=== PATIENT | male | born 1985 | race African-American/Black ===

== ENCOUNTER 2019-10-28 09:33 | Emergency (ER) | payer MEDICAID, SELFPAY ==
--- NOTE | 2019-10-28 09:36 | W.ED.GENAD ---
Discharge Plan Disposition Patient Disposition: HOME Condition: Stable Discharge Details Chief Complaint: RespSymp Clinical Impression: URI with cough and congestion, Patient requested test Primary Care Provider: None,None ED Provider: Khadijah Nieves Home Meds and New Rx's Prescriptions: Continued lorazepam 2 MG tablet 2 mg PO 1-2x/d Qty: 30 RF: 0 dextroamphetamine-amphetamine [Adderall XR] 20 mg capsule,extended release 24hr 20 mg PO DAILY MDD 1 Qty: 30 RF: 0 Discharge Instructions Instructions: Upper Respiratory Infection (ED) Additional Instructions: Drink plenty of fluids and get plenty of rest. Alternate tylenol and motrin as needed and directed for pain. Take [id number] cough and cold medication Mucinex, Robitussin for your symptoms. You will receive a call from the hospital regarding your coronavirus testing result. Follow-up with your primary care doctor in 1 week. Return to the emergency department with any worsening or new concerning symptoms. Discharge Data Discharge Physician: Khadijah Nieves Medical Decision Making 33-year-old male with a history of ADHD presents for cough with white sputum, chest congestion, bad taste in mouth with concern for possible coronavirus. Denies fever. Admits to travel today after 3 weeks ago. He is walking around the room and appears mildly anxious. BP mildly hypertensive, otherwise vitals within normal limits. Normal ENT exam. Lungs clear. Patient tested for coronavirus. Do not see indication for lab work or imaging. Patient appears nontoxic. He was advised to self isolate, and quarantine until the testing result available. Advised to follow up with the primary care doctor for re-evaluation. Usual and customary return precautions given prior to discharge. Medical Records Medical records reviewed: Yes I reviewed the patient's medical records. HPI General Mode of arrival: ambulatory. Date/Time Provider Initiated Documentation: 10/28/19 09:35. Limitations to Documentation: no limitations. Information obtained by: patient. HPI Narrative: Patient is a 33-year-old male with history of ADHD and asthma who presents with cough productive of white sputum, chest congestion, bad taste in mouth for the past few days. He denies any fever, chest pain, shortness of breath, sore throat, headache or neck pain. He has been taking Tylenol and [id number] cough and cold medications. Patient states he traveled to [place] recently and is mainly concerned about mariaa coronavirus. 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 Related Data Home Medications Medication Instructions Recorded Confirmed lorazepam 2 mg PO 1-2x/d #30 tab 11/22/17 10/28/19 dextroamphetamine-amphetamine ER 20 mg PO DAILY #30 tab-cap MDD 1 08/20/18 10/28/19 20 mg 24hr capsule,extend release Previous Rx's Medication Instructions Recorded lorazepam 2 mg PO 1-2x/d #30 tab 11/22/17 dextroamphetamine-amphetamine ER 20 mg PO DAILY #30 tab-cap MDD 1 08/20/18 20 mg 24hr capsule,extend release Allergies Allergy/AdvReac Type Severity Reaction Status Date / Time shellfish derived Allergy Severe Anaphylaxsi Unverified 10/28/19 09:45 s Review of Systems All systems reviewed & are unremarkable except as noted in HPI and below Constitutional Constitutional: Reports as per HPI, Denies chills and Denies fever(s) Eyes Eyes: Denies blurry vision ENT Ears, Nose, Mouth, and Throat: Denies dizziness, Denies sore throat and Denies throat swelling Cardiovascular Cardiovascular: Denies chest pain and Denies dyspnea Respiratory Respiratory: Reports cough and Denies dyspnea Gastrointestinal Gastrointestinal: Denies abdominal pain, Denies diarrhea and Denies vomiting Genitourinary Genitourinary: Denies hematuria and Denies dysuria Musculoskeletal Musculoskeletal: Denies back pain and Denies numbness Integumentary/Breasts Skin/Breast: Denies lesions and Denies rash Neurologic Neurologic: Denies dizziness, Denies localized weakness and Denies numbness Allergic/Immunologic Allergic/Immunologic: Denies throat swelling [facility] Medical History (Updated 10/28/19 @ 14:01 by Khadijah Nieves DO) ADHD (attention deficit hyperactivity disorder) Asthma Prostatitis Surgical History (Updated 01/31/18 @ 14:35 [facility] [place] Arthroscopy, Shoulder EXE MASS UNDER WANG (01/07/15) DR. QUIN MCKEON Rotator Cuff Repair Vasectomy Social History Smoking/Tobacco Use Status: Current every day Alcohol Intake: current Alcohol Intake frequency: 0-2 drinks per day Alcohol type: beer and wine Drug use: Daily Substance use type: marijuana Do you feel safe at home: Yes Do you feel safe in your relationship?: Yes Exam Const General: cooperative, healthy appearing and anxious Orientation: alert and awake [facility] Head: normal to inspection Ears: hearing grossly normal bilaterally, external ears normal and TM's normal bilaterally General nose exam: external nose normal Face and sinus: normal facial exam Mouth: oral mucosae normal Teeth and gingiva: dentition normal Throat: posterior oropharynx normal Eyes General: appearance normal, both eyes and all related structures Eyelids: eyelids normal Pupils: PERRL EOM: EOM intact bilaterally Neck Neck: normal visual inspection Lymphatic: no lymphadenopathy noted Chest Chest: normal inspection of the chest Resp Effort & Inspection: normal respiratory effort and able to speak in complete sentences Auscultation: clear to auscultation bilaterally Cardio Rate: regular rate Rhythm: regular rhythm GI Inspection: normal to inspection Palpation: soft, not firm, no guarding, no hepatosplenomegaly, no masses and nontender Auscultation: normal bowel sounds Skin General skin exam: no rashes or lesions noted Neuro General: patient alert and patient awake Cognition: normal cognition Speech: speech normal Gait: normal gait Motor: muscle tone normal throughout Sensory Exam: no sensory deficits noted Extrem General: normal to inspection, full ROM and capillary refill normal Psych Appearance: grossly normal Mental Status: mental status grossly normal Speech and Movement: speech and movement normal Mood: anxious mood Affect: normal affect Thought Process: normal
[2019-10-28 09:39] VITALS: BP 151/89; PULSE 74; TEMP 36.5; O2SAT 98
[2019-11-01 17:49] LABS: SARS-CoV-2 RNA Undetected (Undetected); SARS-CoV-2 Specimen Source Nasopharynx
== END 2019-10-28 10:41 | disposition home or self-care (01) ==
PROVIDERS: Emergency Provider Physician Assistant
DX: J06.9 Acute upper respiratory infection, unspecified (principal); R43.9 Unspecified disturbances of smell and taste; Z11.59 Encounter for screening for other viral diseases
CPT/HCPCS: 99283; U0003; 99282

== ENCOUNTER 2020-06-17 11:28 | Emergency (ER) | payer MEDICAID, SELFPAY ==
[2020-06-17 11:38] VITALS: BP 138/89; PULSE 98; RESP 18; TEMP 36.9; O2SAT 98
[2020-06-17 11:51] LABS: Bilirubin Negative (Negative); Blood Negative (Negative); Clarity Clear (Clear); Glucose Negative (Negative); Ketones Negative (Negative); Leukocyte Esterase Negative (Negative); Nitrite Negative (Negative); Specific Gravity >= 1.030 (1.005-1.025); Urobilinogen 0.2 EU/dL (Up TO 0.2); pH 5.5 (5-8)
--- NOTE | 2020-06-17 12:00 | DI.US_ITS ---
EXAM: US SCROTUM CLINICAL HISTORY: testicle pain righ>L. TECHNIQUE: Scrotal ultrasound performed using grayscale, color-flow and spectral Doppler analysis. COMPARISON: No exams were available for comparison FINDINGS: Right testicle: 2.8 x 2.5 x 2.8 cm Echogenicity: Normal. Contour: Smooth. Mass: None seen. Microlithiasis: None. Hydrocele: None. Variocele: None. Hernia: No peristalsing bowel loop identified. Epididymis: Normal. Left testicle: 3.2 x 2.1 x 2.9 cm Echogenicity: Normal. Contour: Smooth. Mass: None seen. Microlithiasis: None. Hydrocele: None. Variocele: None. Hernia: No peristalsing bowel loop identified. Epididymis: Normal. DOPPLER: Color: Symmetric and uniform, no hyperemia. Duplex: Bilateral testicular arterial waveforms visualized. IMPRESSION: 1. Normal appearing bilateral testicles. 2. No sonographic evidence of an inguinal hernia. DATA REPOSITORY:
--- NOTE | 2020-06-17 12:18 | ED.GENADUL_ITS ---
Discharge Plan Disposition Patient Disposition: HOME Condition: Good Discharge Details Clinical Impression: Pain in right testicle Primary Care Provider: None,None ED Provider: Shari Gonzalez Home Meds and New Rx's Prescriptions: New doxycycline hyclate 100 mg capsule 100 mg PO BID Qty: 20 RF: 0 No Action lorazepam 2 MG tablet 2 mg PO 1-2x/d Qty: 30 RF: 0 dextroamphetamine-amphetamine [Adderall XR] 20 mg capsule,extended release 24hr 20 mg PO DAILY MDD 1 Qty: 30 RF: 0 Discharge Instructions Additional Instructions: take antibiotics as prescribed yogurt daily on antibiotics motrin/tylenol for pain control follow-up with urologist with persistent pain >1 weekreturn earlier with fever, chills, or with any new or worsening complaints Referrals: Chucky Way MD [ [facility] STAFF PHYSICIAN] - Medical Decision Making Ultrasound scrotum does not show acute abnormality Afebrile and nontoxic GC chlamydia urine pending We will treat empirically for epididymitis, placed on doxycycline for 10 days Ceftriaxone 500 mg IM No obvious hernia on ultrasound Urinalysis does not show evidence of urinary tract infection, STD panel pending Patient will use a sexual practices and follow-up for results of his STD testing return, COVID-19 testing today reportedly. Discharge home in stable condition with stable vitals, urology referral supplied Return precautions discussed understanding Differential Diagnosis Differential Diagnosis: Urinary tract infection, sexually transmitted disease, epididymitis, hernia Medical Records Medical records reviewed: Yes I reviewed the patient's medical records. Lab Data Lab results reviewed: Yes I reviewed the patient's lab results. HPI 35-year-old male presents negative pain at right inguinal region and examination for the past 3 weeks. Initially pain was intermittent and now constant. He denies fever or chills. He denies ejaculatory pain. He denies any chest pain or shortness of breath. He denies pain with bowel movements. He denies any purulent drainage from his urethra. He denies blood in his ejaculate. He sexually active and monogamous partner for years. Denies known risk of sexually transmitted disease. Hypothyroidism diagnosed with epididymitis but cleared with antibiotics. Follow-up with urology and hospital for this particular incident. Denies dysuria denies any flank pain. Otherwise reportedly healthy. General Date/Time Provider Initiated Documentation: 06/17/20 11:41 . Related Data Home Medications Medication Instructions Recorded Confirmed lorazepam 2 mg PO 1-2x/d #30 tab 11/22/17 06/17/20 dextroamphetamine-amphetamine ER 20 mg PO DAILY #30 tab-cap MDD 1 08/20/18 06/17/20 20 mg 24hr capsule,extend release doxycycline hyclate 100 mg PO BID #20 cap 06/17/20 Previous Rx's Medication Instructions Recorded lorazepam 2 mg PO 1-2x/d #30 tab 11/22/17 dextroamphetamine-amphetamine ER 20 mg PO DAILY #30 tab-cap MDD 1 08/20/18 20 mg 24hr capsule,extend release doxycycline hyclate 100 mg PO BID #20 cap 06/17/20 Allergies Allergy/AdvReac Type Severity Reaction Status Date / Time shellfish derived Allergy Severe Anaphylaxsi Unverified 06/17/20 11:45 s General Stated Complaint: Urinary KAILA: 3 Review of Systems Narrative: Review of systems negative x7 aside from where indicated in HPI, specifically no abdominal pain, chest pain, fever PFSH Medical History (Updated 06/17/20 @ 13:07 by SHIRLEY Myrick) ADHD (attention deficit hyperactivity disorder) Asthma Prostatitis Surgical History (Updated 01/31/18 @ 14:35 by [employer] [place]) Arthroscopy, Shoulder EXE MASS UNDER WANG (01/07/15) DR. QUIN MCKEON Rotator Cuff Repair Vasectomy Social History Smoking/Tobacco Use Status: Current every day Smoking risk assessment performed?: Yes Alcohol Intake: current Alcohol Intake frequency: 0-2 drinks per day Alcohol type: beer and wine Drug use: Daily Substance use type: marijuana Do you feel safe at home: Yes Do you feel safe in your relationship?: Yes Exam Const General: cooperative and healthy appearing Eyes Conjunctivae: conjunctivae normal Resp Effort & Inspection: normal respiratory effort Cardio Rate: regular rate GI Other: No palpable hernia, no CVA tenderness, no abdominal bruit or pulsatile mass, abdomen nontender Scrotum: no ecchymosis, not edematous and not erythematous Testes: epididymal tenderness Other: No palpable hernia Skin General skin exam: no rashes or lesions noted Neuro General: patient alert Course Vital Signs Vital signs: Vital Signs Temperature 36.9 C 06/17/20 11:38 Pulse 98 H 06/17/20 11:38 Respiratory Rate 18 06/17/20 11:38 Blood Pressure 138/89 06/17/20 11:38 Pulse Oximetry 98 06/17/20 11:38 Temperature 36.9 C 06/17/20 11:38 Temperature Source Oral 06/17/20 11:38 Pulse 98 H 06/17/20 11:38 Respiratory Rate 18 06/17/20 11:38 Respiratory Effort 06/17/20 11:42 Blood Pressure 138/89 06/17/20 11:38 Pulse Oximetry 98 06/17/20 11:38 Oxygen Delivery Method Room Air 06/17/20 11:38 Oxygen Flow Rate 0 06/17/20 11:38 Pain Level 9 06/17/20 11:38 Lab/Test Results Lab/Test Results: Laboratory Tests Range/Units 06/17/20 11:40 Urine Color (Yellow) Yellow Urine Clarity (Clear) Clear Urine pH (5-8) 5.5 Ur Specific [place] (1.005-1.025) >= 1.030 H Urine Protein (Negative) mg/dL Negative Urine Ketones (Negative) mg/dL Negative Urine Blood (Negative) Negative Urine Nitrite (Negative) Negative Urine Bilirubin (Negative) Negative Urine Urobilinogen (Up TO 0.2) EU/dL 0.2 Ur Leukocyte Esterase (Negative) Negative Urine Glucose (Negative) mg/dL Negative
[2020-06-17] MEDS: Ketorolac 15 MG/ML VIAL IM (13:32)
[2020-06-17] MEDS: Lidocaine 1% Pres-Free 5 ML VIAL (13:32)
[2020-06-17] MEDS: cefTRIAXone 500 MG VIAL IM (13:32)
[2020-06-18 14:40] LABS: Chlamydia Result Negative (Negative); GC Result Negative (Negative)
== END 2020-06-17 13:32 | disposition home or self-care (01) ==
PROVIDERS: Registered Nurse Emergency; Emergency Provider Physician Assistant
DX: N50.811 Right testicular pain (principal)
CPT/HCPCS: 87491; 87591; 96372; 99284; 76870; 81003; 99283; J0696; J1885

== ENCOUNTER 2020-08-25 13:50 | Outpatient (REF) | payer MEDICAID, SELFPAY ==
[2020-08-25 18:57] LABS: HCT 44.3 % (40.0-50.0); HGB 13.9 g/dL (13.5-17.5); MCH 23.1 pg (27.0-33.0); MCHC 31.4 % (32.0-36.0); MPV 12.1 fL (8.0-11.0); Platelet Count 247 10^3/uL (130-400); RBC 6.03 10^6/uL (4.36-5.78); RDW 14.6 % (11.8-14.1); RDW-SD 37.7 fL; WBC 9.28 10^3/uL (4.4-10.8)
[2020-08-25 19:11] LABS: ALT 43 U/L (16-63); AST 19 U/L (15-37); Albumin 4.4 g/dL (3.4-5.0); Alkaline Phosphatase 75 U/L (46-116); Anion Gap 12.9 mmol/L (3-11); BUN 12 mg/dL (7-18); Bilirubin, Total 0.4 mg/dL (0.2-1.0); CO2 24.1 mmol/L (21.0-32.0); CREATININE 0.9 mg/dL (0.70-1.30); Calcium 9.4 mg/dL (8.5-10.1); Calculated LDL 139 mg/dL (<100); Chloride 105 mmol/L (98-107); Cholesterol 209 mg/dL (<200); Glucose 97 mg/dL (74-106); HDL Cholesterol 41 mg/dL (40-60); Potassium 4.5 mmol/L (3.5-5.1); Sodium 142 mmol/L (136-145); Total Protein 7.6 g/dL (6.4-8.2); Triglyceride 145 mg/dL (<150)
[2020-08-25 19:23] LABS: Lipase 102 U/L (73-393)
[2020-08-25 20:22] LABS: MCV 73.5 fL (80-95)
== END 2020-08-25 13:51 | disposition home or self-care (01) ==
LOC: NCHCN 13:50
PROVIDERS: Visit Provider Nurse Practitioner Family
DX: R10.84 Generalized abdominal pain (principal); R74.8 Abnormal levels of other serum enzymes; R25.1 Tremor, unspecified; F10.10 Alcohol abuse, uncomplicated
CPT/HCPCS: 80053; 80061; 83690; 85027

== ENCOUNTER 2020-09-04 13:07 | Outpatient (REF) | payer MEDICAID, SELFPAY ==
[2020-09-04 18:49] LABS: Iron 104 ug/dL (65-175); Total Iron Binding Capacity 317 ug/dL (250-450); Transferrin Sat 33 % (20-55)
[2020-09-04 19:02] LABS: Ferritin 214 ng/mL (26-388)
== END 2020-09-04 13:08 | disposition home or self-care (01) ==
LOC: NCHCN 13:07
PROVIDERS: Visit Provider Nurse Practitioner Family
DX: R71.8 Other abnormality of red blood cells (principal)
CPT/HCPCS: 82728; 83540; 83550

== ENCOUNTER 2022-05-10 16:47 | Emergency (ER) | payer MEDICAID, SELFPAY ==
[2022-05-10 16:55] VITALS: BP 156/87; PULSE 95; RESP 20; O2SAT 98
--- NOTE | 2022-05-10 21:37 | NUR.NOTE ---
Nursing Note: Patient eloped. Was seen by SHIRLEY Mccarthy, but elected to leave prior to workup being completed. Well appearing, able to walk out without assitance.
[2022-05-10 21:38] VITALS: RESP 20
== END 2022-05-10 18:25 ==
LOC: ER 17:12
PROVIDERS: Emergency Provider Physician Assistant
DX: Z53.21 Procedure and treatment not carried out due to patient leaving prior to being seen by health care provider (principal)
CPT/HCPCS: 80053; 83735; 84443; 85025

== ENCOUNTER 2022-05-11 11:27 | Emergency (ER) | payer MEDICAID, SELFPAY ==
[2022-05-11 11:35] VITALS: BP 132/64; PULSE 96; RESP 18; TEMP 37.4; O2SAT 99
--- NOTE | 2022-05-11 12:04 | ED.GENADUL_ITS ---
Discharge Plan Disposition Patient Disposition: Home Condition: Stable Discharge Details Clinical Impression: Paresthesia ED Provider: Farhat Verma Home Meds and New Rx's Prescriptions: No Action lorazepam 2 MG tablet 2 mg PO PRN PRN Discharge Instructions Instructions: Paresthesia (ED) Additional Instructions: Please get plenty of rest and stay well-hydrated. Continue to monitor symptoms and if you have any significant worsening return to the emergency department otherwise if your symptoms stay stable please discuss this further with your primary care provider to discuss further testing and advanced imaging if needed. Referrals: [facility] [Provider Group] - 05/18/22 (Please keep your appoint with your primary care provider and discuss your visit today.) Discharge Data Discharge Date/Time-TO BE ENTERED AT DEPARTURE: 05/11/22 15:20 Medical Decision Making Patient presenting to the emergency department for chief complaint of numbness that is transient along with occasional general weakness. He states this all started a week ago when he started amoxicillin for dental infection. Patient denies any injury or trauma, fever chills, chest pain shortness of breath or other neurological symptoms. Physical exam shows normal cranial nerve exam, normal cardiac and respiratory exam, no rash or lesions, perceived decrease sensation mainly to the left lower extremity and right hand but no loss of sensation. No nerve root pattern to the sensation perception but sensation is intact motor normal, DTRs normal. I have low suspicion that this is a abnormal adverse reaction to the antibiotic. We will check labs for potential electrolyte abnormality, will also do send out tick and Lyme panel along with syphilis. Do not feel that patient requires any advanced imaging and while MS is considered given slight transient nature I do not feel that emergent MRI is needed. I do not feel that patient symptoms are consistent with CVA or emergent acute neurological condition. Patient does state he has follow-up with primary care provider already scheduled for next week. Labs show some mild elevation of of WBCs without shift. RBCs are also slightly elevated, CBC otherwise nondiagnostic, CMP is unremarkable, no obvious electrolyte abnormalities, magnesium within normal limits, B12 within normal limits, calcium sodium and potassium also all again normal. Slightly elevated total protein. Still pending tickborne panel and syphilis. I do feel the patient is safe for discharge to primary care provider for reassessment or return for any significant worsening or change in condition. After discussion of diagnosis and plan of care patient has no further needs, questions, or concerns and states clear understanding to return to the emergency department for any worsening symptoms. This documentation was generated using netTALK dictation system, please disregard any oddities of phrase or misspellings. HPI General Mode of arrival: ambulatory . Date/Time Provider Initiated Documentation: 05/11/22 11:30 . Limitations to Documentation: no limitations . Information obtained by: patient and RN notes reviewed . History of Present Illness 36 year old M presents to the emergency department with the chief complaint of Multiple areas of numbness, described as moderate, Quality is described as other (Denies pain or discomfort), and is localized to the upper extremity and lower extremity. Patient reports no radiation. Patient started experiencing this week(s) (1) and it has been constant. No relieving factors improve symptom(s), Medication worsens symptoms . Patient notes no other symptoms.. Patient did receive the following treatments prior to arrival, none Related Data Home Medications Medication Instructions Recorded Confirmed lorazepam 2 mg tablet 2 mg PO PRN PRN 05/10/22 05/10/22 Allergies Allergy/AdvReac Type Severity Reaction Status Date / Time shellfish derived Allergy Severe Anaphylaxsi Unverified 05/10/22 17:02 s General Stated Complaint: GenMedical KAILA: 3 Review of Systems Constitutional Constitutional: Denies chills, Denies fever(s) and Denies headache(s) Eyes Eyes: Denies change in vision ENT Ears, Nose, Mouth, and Throat: Reports dental pain and Denies headache(s) Cardiovascular Cardiovascular: Denies chest pain and Denies dyspnea Respiratory Respiratory: Denies cough and Denies dyspnea Gastrointestinal Gastrointestinal: Denies abdominal pain, Denies diarrhea, Denies nausea and Denies vomiting Genitourinary Genitourinary: Denies testicular pain Musculoskeletal Musculoskeletal: Reports as per HPI, Reports abnormal gait, Reports numbness and Denies tingling Integumentary/Breasts Skin/Breast: Denies rash and Denies wounds Neurologic Neurologic: Reports abnormal gait, Denies headache(s), Reports numbness and Denies tingling PFSH All Active Problems (Updated 05/11/22 @ 15:00 by Farhat Verma NP) Pain in right testicle (Acute) Paresthesia (Acute) Medical History ADHD (attention deficit hyperactivity disorder) Asthma Prostatitis Surgical History Arthroscopy, Shoulder EXE MASS UNDER WANG (01/07/15) DR. QUIN MCKEON Rotator Cuff Repair Vasectomy Social History Smoking/Tobacco Use Status: Current every day Smoking risk assessment performed?: Yes Alcohol Intake: current Alcohol Intake frequency: 0-2 drinks per day Alcohol type: beer and wine Drug use: Daily Substance use type: marijuana Do you feel safe at home: Yes Do you feel safe in your relationship?: Yes Exam Const General: cooperative, healthy appearing, no acute distress and well groomed Orientation: alert, awake and oriented x3 HENMT Head: normal to inspection Ears: hearing grossly normal bilaterally and TM's normal bilaterally Mouth: oral mucosae normal and moist mucous membranes Throat: posterior oropharynx normal Eyes Visual Monroy: normal visual monroy by confrontation Alignment and Position: alignment normal Periorbital: periorbital findings normal Eyelids: eyelids normal Sclera: sclerae normal Cornea: corneas normal Pupils: PERRL EOM: EOM intact bilaterally Neck Neck: normal visual inspection, full ROM, no lymphadenopathy and no meningeal signs Resp Effort & Inspection: normal respiratory effort and able to speak in complete sentences Auscultation: clear to auscultation bilaterally Cardio Rate: regular rate Rhythm: regular rhythm Heart Sounds: S1 normal and S2 normal Neuro General: patient alert, patient awake, patient oriented x3, gait normal, tone normal, moves all extremities, CN's II-XI intact bilaterally and not confused Cognition: normal cognition Speech: speech normal Gait: normal gait Motor: muscle tone normal throughout, strength 5/5 throughout, no pronator drift, no movement abnormalities noted and no fasciculations Sensory Exam: no sensory deficits noted and normal double simultaneous stimulation DTR's: Rt Patellar: 2+, Lt Patellar: 2+, Rt Ankle: 2+ and Lt Ankle: 2+ Coordination: Does not sway with eyes open Course Vital Signs Vital signs: Vital Signs Temperature 37.4 C 05/11/22 11:35 Pulse 96 H 05/11/22 11:35 Respiratory Rate 18 05/11/22 11:35 Blood Pressure 132/64 05/11/22 11:35 Pulse Oximetry 99 05/11/22 11:35 Temperature 37.4 C 05/11/22 11:35 Temperature Source Tympanic 05/11/22 11:35 Pulse 96 H 05/11/22 11:35 Respiratory Rate 18 05/11/22 11:35 Respiratory Effort 05/11/22 11:51 Respiratory Depth Normal 05/11/22 11:51 Respiratory Pattern Normal 05/11/22 11:51 Blood Pressure 132/64 05/11/22 11:35 Blood Pressure Position Supine 05/11/22 11:35 Pulse Oximetry 99 05/11/22 11:35 Oxygen Delivery Method Room Air 05/11/22 11:35 Oxygen Flow Rate 0 05/11/22 11:35 Pain Level 0 05/11/22 11:35 PAWSS Have you Been Recently Intoxicated or Drunk Within the Last 30 days?: Yes Have you Ever Experienced Previous Episodes of Alcohol Withdrawal?: No Have you ever Experienced Withdrawal Seizures?: No Have you ever Experienced Delirium Tremens(DT)s?: No Have you ever undergone Alcohol Rehabilitation Treatment (i.e, inpt ot outpatient treatment programs)?: No Have you ever Experienced Blackouts?: No Have you ever Combined Alcohol with other Downers within the last 90 days?: No Have you ever Combined Alcohol with any other Substance of Abuse during the last 90 days?: No Positive Blood Alcohol level on Presentation? [PCS.BAL]: No Evidence of Increased Autonomic Activity (i.e. HR>120, tremor, sweating, agitation, nausea)?: No Result: 1
[2022-05-11 13:10] LABS: Abs Immature Grans 0.04 10^3/uL (0.0-0.06); Absolute Basophil Count 0.06 10^3/uL (0.0-0.2); Absolute Eosinophil Count 0.05 10^3/uL (0.0-0.7); Absolute Lymphocyte Count 2.37 10^3/uL (1.2-3.4); Absolute Monocyte Count 0.77 10^3/uL (0.1-0.8); Basophils % 0.5; Eosinophils % 0.4; HCT 47.3 % (40.0-50.0); HGB 15.1 g/dL (13.5-17.5); Immature Grans % 0.4; Lymphocytes % 20.8; MCH 23.2 pg (27.0-33.0); MCHC 31.9 % (32.0-36.0); MPV 11.7 fL (8.0-11.0); Monocytes % 6.8; Neutrophils % 71.1; Platelet Count 270 10^3/uL (130-400); RBC 6.52 10^6/uL (4.36-5.78); RDW 15.3 % (11.8-14.1); RDW-SD 37.8 fL; WBC 11.39 10^3/uL (4.4-10.8)
[2022-05-11 13:13] LABS: MCV 73 fL (80-95)
[2022-05-11 14:14] LABS: ALT 44 U/L (16-63); AST 26 U/L (15-37); Albumin 4.7 g/dL (3.4-5.0); Alkaline Phosphatase 74 U/L (46-116); BUN 14 mg/dL (7-18); Bilirubin, Total 0.5 mg/dL (0.2-1.0); CREATININE 0.9 mg/dL (0.70-1.30); Calcium 9.9 mg/dL (8.5-10.1); Chloride 102 mmol/L (98-107); Estimated GFR 113.51 (mL/min/1.73m2); Glucose 100 mg/dL (74-106); Magnesium 1.9 mg/dL (1.8-2.4); Potassium 4.2 mmol/L (3.5-5.1); Sodium 138 mmol/L (136-145); Total Protein 8.4 g/dL (6.4-8.2); Vitamin B12 487 pg/mL (193-986)
[2022-05-11 15:15] VITALS: BP 134/81; PULSE 82; RESP 16; TEMP 36.5; O2SAT 98
[2022-05-11 15:20] VITALS: BP 134/81; PULSE 82; TEMP 36.5; O2SAT 98
[2022-05-12 10:13] LABS: Lyme Ab w Rflx to Lyme Confirm Negative (Negative)
[2022-05-12 10:52] LABS: Syphilis Serology (RPR) Negative (Negative)
[2022-05-13 12:52] LABS: Syphilis IgG w/Reflex Nonreactive (Nonreactive)
[2022-05-13 18:52] LABS: Anaplasma phagocytophilum Negative (Negative); B. miyamotoi PCR Negative (Negative); Babesia divergens/MO-1 Negative (Negative); Babesia duncani Negative (Negative); Babesia microti Negative (Negative); Ehrlichia chaffeensis Negative (Negative); Ehrlichia ewingii/canis Negative (Negative); Ehrlichia muris eauclairensis Negative (Negative)
== END 2022-05-11 15:20 | disposition home or self-care (01) ==
PROVIDERS: Emergency Provider Nurse Practitioner Family
DX: R20.2 Paresthesia of skin (principal); D72.829 Elevated white blood cell count, unspecified; R71.8 Other abnormality of red blood cells; J45.909 Unspecified asthma, uncomplicated
CPT/HCPCS: 80053; 87798; 99282; 82607; 83735; 85025; 86592; 86618; 86780

== ENCOUNTER 2022-06-17 00:14 | Outpatient (CLI) | payer MEDICAID, SELFPAY ==
--- NOTE | 2022-06-17 11:15 | DI.MRI_ITS ---
Exam(s) MR BRAIN WO EXAM: MR BRAIN WO CLINICAL HISTORY: NUMBNESS PARESTHESIA, R20.9,GAIT INSTABILITY,DIFFUSE HYPERREFLEXIA TECHNIQUE: Multiplanar multisequence MRI of the brain was performed. COMPARISON: No exams were available for comparison FINDINGS: CEREBRAL PARENCHYMA: There is no evidence of intracranial hemorrhage, mass effect, or shift of midline structures. There are no extra-axial fluid collections. Ventricles are not enlarged or shifted. There is some signal abnormality in the peripheral aspect of the left cerebellar hemisphere on FLAIR imaging, possibly artifact given its appearance and absence of signal abnormality at this level on ot her sequences. No abnormal signal in the stacy, midbrain, and thalami. There are few small [address] foci of FLAIR bright signal abnormality in the supra ventricular white matter, not associated wit h hemorrhage or surrounding edema nor restricted diffusion. There is a well-defined round cystic structure measuring 1.3 by 1.3 by 0.9 cm, immediately above the tectum of the midbrain, consistent with pineal gland cyst. No associated ventriculomegaly. No surro unding brain edema. There is no significant focal signal abnormality evident on diffusion imaging to suggest acute ischem ic event. SWI: No microhemorrhages evident. PITUITARY GLAND: No mass nor parasellar abnormality. No obvious abnormality in the cavernous sinuses. FLOW VOIDS: The expected flow void are noted. No evidence of obvious aneurysm nor obvious vascular ma lformation. PARANASAL SINUSES: There is a retention cyst in the left maxillary sinus floor measuring 1.5 by 1.5 b y 1.5 cm. No associated fluid level. Remainder of the paranasal sinuses are clear as are the mastoi d air cells. ORBITS: No obvious findings. 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 This is central-slightly l eft of center. There is no edema in the subjacent midbrain tectum and adjacent thalami. There are few small nonspecific FLAIR bright white matter foci measuring up to 3 millimeters evident in the white matter bilaterally. No evidence of restricted diffusion. Incidental finding of retention cyst in the left maxillary sinus. No associated fluid level. DATA REPOSITORY:
== END 2022-06-17 00:34 ==
LOC: DI 00:15
PROVIDERS: Visit Provider Physician Assistant
DX: R20.0 Anesthesia of skin (principal); R20.2 Paresthesia of skin; R26.89 Other abnormalities of gait and mobility; R29.2 Abnormal reflex; G93.0 Cerebral cysts; R90.82 White matter disease, unspecified; D35.4 Benign neoplasm of pineal gland
CPT/HCPCS: 70551

== ENCOUNTER 2022-08-26 10:17 | Outpatient (REF) | payer MEDICAID, SELFPAY ==
[2022-08-26 11:07] LABS: Abs Immature Grans 0.04 10^3/uL (0.0-0.06); Absolute Basophil Count 0.03 10^3/uL (0.0-0.2); Absolute Eosinophil Count 0.07 10^3/uL (0.0-0.7); Absolute Lymphocyte Count 1.83 10^3/uL (1.2-3.4); Absolute Monocyte Count 0.45 10^3/uL (0.1-0.8); Absolute Neutrophil Count 5.94 10^3/uL (1.2-6.7); Basophils % 0.4; Eosinophils % 0.8; HCT 42.7 % (40.0-50.0); HGB 13.6 g/dL (13.5-17.5); Immature Grans % 0.5; Lymphocytes % 21.9; MCH 23.2 pg (27.0-33.0); MCHC 31.9 % (32.0-36.0); MCV 73 fL (80-95); MPV 10.9 fL (8.0-11.0); Monocytes % 5.4; Platelet Count 219 10^3/uL (130-400); RBC 5.86 10^6/uL (4.36-5.78); RDW 15.1 % (11.8-14.1); RDW-SD 39.1 fL; WBC 8.36 10^3/uL (4.4-10.8)
[2022-08-26 11:12] LABS: ESR 7 mm/hr (0-15)
[2022-08-26 11:34] LABS: ALT 38 U/L (16-63); AST 17 U/L (15-37); Albumin 4.2 g/dL (3.4-5.0); Alkaline Phosphatase 75 U/L (46-116); Anion Gap 8.9 mmol/L (3-11); BUN 12 mg/dL (7-18); Bilirubin, Total 0.4 mg/dL (0.2-1.0); C-Reactive Protein 0.09 mg/dL (0.0-0.3); CO2 25.1 mmol/L (21.0-32.0); CREATININE 0.9 mg/dL (0.70-1.30); Calcium 9.3 mg/dL (8.5-10.1); Chloride 105 mmol/L (98-107); Estimated GFR 113.51 (mL/min/1.73m2); Glucose 98 mg/dL (74-106); Lipase 40 U/L (16-77); Magnesium 1.9 mg/dL (1.8-2.4); Potassium 4.2 mmol/L (3.5-5.1); Sodium 139 mmol/L (136-145); Total Protein 7.8 g/dL (6.4-8.2)
[2022-08-26 11:37] LABS: Microcytosis 1+
[2022-08-26 12:29] LABS: Vitamin B12 669 pg/mL (193-986)
[2022-08-26 18:29] LABS: Rheumatoid Factor <8.6 IU/mL (<12.0)
[2022-08-29 15:30] LABS: ANA Interpretation Negative (Negative)
[2022-08-30 23:55] LABS: Thiamine (Vitamin B1), WB 93 nmol/L (70-180)
== END 2022-08-26 10:18 | disposition home or self-care (01) ==
LOC: LBN 10:17
PROVIDERS: PCP Physician Assistant; Visit Provider Physician Assistant Medical
DX: R10.11 Right upper quadrant pain (principal); R20.0 Anesthesia of skin; R20.2 Paresthesia of skin
CPT/HCPCS: 80053; 83690; 85652; 82607; 83735; 84425; 85025; 86038; 86140; 86431

== ENCOUNTER 2022-08-26 11:15 | Outpatient (CLI) | payer MEDICAID, SELFPAY ==
--- NOTE | 2022-08-26 | DI.US_ITS ---
Exam(s) US ABDOMEN LIMITED EXAM: US ABDOMEN LIMITED CLINICAL HISTORY: RT UPPER QUAD ABD PAIN, R10.11 TECHNIQUE: Ultrasound abdomen performed using standard protocol. COMPARISON: CT ABD PELVIS WITH CONTRAST from 03/06/2016 FINDINGS: LIVER: Mildly enlarged. Increased echogenicity consistent with moderate hepatic steatosis. Focal fa tty sparing near the gallbladder. A 13 millimeters cyst in the right lobe. Ill-defined hypoechoic m ass measuring 2.5 cm in the left lobe. GALLBLADDER: Status post cholecystectomy. BILIARY SYSTEM: No intrahepatic or extrahepatic biliary ductal dilation. KIDNEYS: Kidneys are symmetric in size. No evidence of renal calculi. No evidence of hydronephrosis. No renal mass or cyst identified. PANCREAS: Normal where visualized. SPLEEN: Not enlarged. ABDOMINAL AORTA AND IVC: Visualized portions normal caliber. ASCITES: None seen. IMPRESSION: Moderate hepatic steatosis. 2.5 centimeter mildly hypoechoic mass in the left lobe. Further evaluat ion with CT of the abdomen and pelvis is recommended.. DATA REPOSITORY:
== END 2022-08-26 11:35 ==
LOC: DI 11:16
PROVIDERS: PCP Physician Assistant; Visit Provider Physician Assistant Medical
DX: K76.89 Other specified diseases of liver; R10.11 Right upper quadrant pain; R93.2 Abnormal findings on diagnostic imaging of liver and biliary tract
CPT/HCPCS: 76705

== ENCOUNTER 2022-08-29 01:38 | Outpatient (CLI) | payer MEDICAID, SELFPAY ==
--- NOTE | 2022-08-29 | DI.CT_ITS ---
Exam(s) CT ABDOMEN PELVIS W EXAM: CT ABDOMEN PELVIS W CLINICAL HISTORY: LIVER MASS,K76.89,RUQ ABD PAIN,R10.11. TECHNIQUE: Imaging Protocol: Axial computed tomography images with coronal and sagittal reformatted images were created and reviewed CONTRAST MATERIAL: Intravenous: Omnipaque 350 Contrast volume:100 ml Oral: yes / COMPARISON: CT ABD PELVIS WITH CONTRAST from 03/06/2016 US US SCROTUM from 06/17/2020 US US ABDOMEN LIMITED from 08/26/2022 FINDINGS: ABDOMEN: Lung Bases: Normal where visualized. Liver: Mildly enlarged. Mildly decreased attenuation consistent with hepatic steatosis. 10 millimet er enhancing focus on the superior peripheral right lobe. Cystic area was seen on ultrasound there t his is too small to characterize. Mass questioned in left lobe of liver not visible. Slight focal f atty sparing near the gallbladder. Gallbladder and biliary tract: No radiodense calculus or dilation. Pancreas: Normal density, no abnormal calcifications or inflammatory process. Spleen: Normal. Kidneys: Normal size, contour and axis. No radiodense stones or obstructive uropathy. No suspicious m asses seen. Adrenal glands: No masses seen. Abdominal Aorta: Abdominal portion non-dilated. Soft tissues: Unremarkable. PELVIS: Bladder: No gross wall thickening. No calculi.No focal mass. Bowel: Moderate to increased quantity of stool. No obstruction. No bowel wall thickening. Appendix normal. Peritoneal cavity: No ascites, collection or mesenteric inflammatory response. Bones: Unremarkable for age. Reproductive organs: Within normal limits. Lymph nodes: Unremarkable. Impression: Question mass in left lobe of liver not visualized on CT. MRI could be considered for further evalua tion. RADIATION DOSE DELIVERED: 1,097.56mGy.cm Total DLP DATA REPOSITORY: All CT scans at this facility are submitted to the National Radiology Data Registry (NRDR) Dose Index Registry (DIR) with the [employer] ([employer]). RADIATION OPTIMIZATION: All CT scans at this facility use at least one of these dose optimization te chniques: automated exposure control; mA and/or kV adjustment per patient size (includes targeted exa ms where dose is matched to clinical indication); or iterative reconstruction.
[2022-08-29] MEDS: Barium Sulfate 2% W/V-Berry Smoothie 450 ML BTL 900 ML PO (11:14)
[2022-08-29] MEDS: Normal Saline - Diluent 50 ML VIAL IJ (12:40)
[2022-08-29] MEDS: Omnipaque 350 MG/ML 500 ML BTL-Imaging package IJ (12:40)
== END 2022-08-29 01:58 ==
PROVIDERS: PCP Physician Assistant; Visit Provider Physician Assistant Medical
DX: K76.89 Other specified diseases of liver (principal); R10.11 Right upper quadrant pain
CPT/HCPCS: 74177

== ENCOUNTER 2022-08-30 16:37 | Outpatient (CLI) | payer MEDICAID, SELFPAY ==
--- NOTE | 2022-08-30 | DI.MRI_ITS ---
Exam(s) MR LUMBAR SPINE WO EXAM: MR LUMBAR SPINE WO CLINICAL HISTORY: NUMBNESS, PARESTHESIAS, R20.9, BILAT LOWER EXT, H/O SADDLE ANESTHESIA. TECHNIQUE: Multiplanar multisequence MRI of the Lumbar spine was performed. COMPARISON: CT ABD PELVIS WITH CONTRAST from 03/06/[address] ABDOMEN PELVIS W from 08/29/2022 FINDINGS: Bones: The last intervertebral disc space is designated the L5/S1 level for the numbering purpose of this examination. The vertebral body heights are well maintained. Alignment is satisfactory. Mild d egenerative endplate signal changes are present. Cord: The conus tip ends at the T12-L1 level. It is of normal size and signal intensity. T12-L1: No disc herniations or bulges are present. No central spinal canal or neural foraminal stenos is. L1-2: No disc herniations or bulges are present. No central spinal canal or neural foraminal stenosis . L2-3: There is a small left paracentral disc herniation. No central spinal canal or neural foraminal stenosis. L3-4: No disc herniations or bulges are present. No central spinal canal or neural foraminal stenosis . L4-5: No disc herniations or bulges are present. No central spinal canal or neural foraminal stenosis . L5-S1: There is a mild diffuse disc bulge. There are degenerative changes of the facets. There is n o significant central spinal canal stenosis. There is mild bilateral neural foraminal narrowing. Soft tissues: The visualized SI joints and sacrum are well maintained. The paraspinal soft tissues ar e unremarkable. IMPRESSION: 1. Small left paracentral disc herniation at L2-L3. No central spinal canal or neural foraminal sten osis results. 2. Degenerative facet arthropathy at L5-S1 with degenerative disc disease resulting in mild bilateral neural foraminal stenosis. DATA REPOSITORY:
== END 2022-08-30 16:57 ==
LOC: DI 16:37
PROVIDERS: PCP Physician Assistant; Visit Provider Physician Assistant Medical
DX: M47.16 Other spondylosis with myelopathy, lumbar region (principal)
CPT/HCPCS: 72148

== ENCOUNTER 2022-10-10 02:39 | Outpatient (CLI) | payer MEDICAID, SELFPAY ==
--- NOTE | 2022-10-10 | DI.MRI_ITS ---
Exam(s) MR ABDOMEN WO/W EXAM: MR ABDOMEN WO/W CLINICAL HISTORY: F/U ABNL US,LIVER MASS, K76.89 TECHNIQUE: Multiplanar multisequence MRI of the Abdomen was performed. CONTRAST MATERIAL: IV Contrast: 19 mL of Dotarem contrast administered. COMPARISON: US US ABDOMEN LIMITED from 08/26/[address] ABDOMEN PELVIS W from 08/29/2022 FINDINGS: Examination limited by patient motion artifact. Liver: There is a 9 mm area in the periphery of the left lobe which corresponds to the finding seen o n the CT scan. The lesion actually lies in the left lobe, not the right lobe. It is hyperintense on the T2 weighted images. There is homogeneous enhancement following contrast administration. This d oes not correspond to the finding seen on the initial ultrasound from 08/26/2022. No other hepatic le sions are identified. Pancreas: Unremarkable. Gallbladder and Bile Ducts: Unremarkable. Adrenals: Unremarkable. Kidneys: Unremarkable. Spleen: Unremarkable. Bowel: Unremarkable. Aorta: Unremarkable. Soft Tissues: Unremarkable. Bone: Unremarkable. Lymph Nodes: Unremarkable. IMPRESSION: 1. No hepatic lesion to correspond to the hypo a colic lesion seen on the ultrasound from 08/26/2022. 2. The peripheral lesion seen on the CT scan from 08/29 is noted on this MRI. It does show homogeneo us enhancement following contrast administration. It is nonspecific. It may represent a hepatic hem angioma. Due to its small size the lesion enhances fully on the arterial images. This may be seen w ith small hemangiomas. A follow-up MRI in 6 months is recommended for re-evaluation. DATA REPOSITORY:
[2022-10-10] MEDS: Normal Saline - Diluent 50 ML VIAL 25 ML IJ (10:45)
[2022-10-10] MEDS: Gadoterate meglumine 20 ML VIAL 19 ML IVP (10:46)
== END 2022-10-10 02:59 ==
LOC: DI 02:39
PROVIDERS: PCP Physician Assistant; Visit Provider Physician Assistant Medical
DX: K76.89 Other specified diseases of liver (principal)
CPT/HCPCS: 74183

== ENCOUNTER 2023-07-27 20:45 | Outpatient (REF) | payer MEDICAID, SELFPAY ==
[2023-07-27 20:59] LABS: Abs Immature Grans 0.03 10^3/uL (0.0-0.06); Absolute Basophil Count 0.07 10^3/uL (0.0-0.2); Absolute Eosinophil Count 0.04 10^3/uL (0.0-0.7); Absolute Monocyte Count 0.75 10^3/uL (0.1-0.8); Basophils % 0.6; Eosinophils % 0.4; HCT 45.7 % (40.0-50.0); HGB 14.5 g/dL (13.5-17.5); Immature Grans % 0.3; Lymphocytes % 21.3; MCHC 31.7 % (32.0-36.0); MCV 73 fL (80-95); MPV 12.2 fL (8.0-11.0); Monocytes % 6.7; Neutrophils % 70.7; Platelet Count 266 10^3/uL (130-400); RDW 15.6 % (11.8-14.1); RDW-SD 38.8 fL
[2023-07-27 21:12] LABS: Absolute Lymphocyte Count 2.39 10^3/uL (1.2-3.4); Absolute Neutrophil Count 7.92 10^3/uL (1.2-6.7)
[2023-07-27 21:14] LABS: Diff Comment RBC Morph Reviewed
[2023-07-27 21:15] LABS: Microcytosis 1+
[2023-07-27 21:20] LABS: ALT 36 U/L (16-63); AST 17 U/L (15-37); Albumin 4.8 g/dL (3.4-5.0); Alkaline Phosphatase 86 U/L (46-116); Anion Gap 12.4 mmol/L (3-11); BUN 12 mg/dL (7-18); Bilirubin, Total 0.6 mg/dL (0.2-1.0); CO2 25.6 mmol/L (21.0-32.0); CREATININE 0.9 mg/dL (0.70-1.30); Calcium 9.6 mg/dL (8.5-10.1); Chloride 104 mmol/L (98-107); Estimated GFR 112.81 (mL/min/1.73m2); FREE T4 1.13 ng/dL (0.76-1.46); Glucose 96 mg/dL (74-106); Potassium 4.3 mmol/L (3.5-5.1); Sodium 142 mmol/L (136-145); TSH 2.19 uIU/Ml (0.36-3.74); Total Protein 8.4 g/dL (6.4-8.2)
== END 2023-07-27 20:46 | disposition home or self-care (01) ==
LOC: LBN 20:45
PROVIDERS: PCP Physician Assistant; Visit Provider Physician Assistant Medical
DX: R09.89 Other specified symptoms and signs involving the circulatory and respiratory systems (principal)
CPT/HCPCS: 80053; 84439; 84443; 85025; 87070

== ENCOUNTER 2024-11-11 09:35 | Outpatient (CLI) | payer MEDICAID, SELFPAY ==
--- NOTE | 2024-11-11 09:15 | DI.RAD_ITS ---
Exam(s) XR ANKLE LT COMPLETE EXAM: XR ANKLE LT COMPLETE CLINICAL HISTORY: Continues pain W19.XXXA FALL PAIN TECHNIQUE: 2D digital imaging was performed. Three views. COMPARISON: No exams were available for comparison FINDINGS: BONES: No acute fracture is present. No bony destructive lesion is seen. JOINTS:The ankle mortise is normally aligned. SOFT TISSUE: Normal. IMPRESSION: Unremarkable radiographs of the left ankle. DATA REPOSITORY: RADIATION DOSE DELIVERED:
--- NOTE | 2024-11-11 09:15 | DI.RAD_ITS ---
Exam(s) XR WRIST LT COMPLETE EXAM: XR WRIST LT COMPLETE CLINICAL HISTORY: Continues pain W19.XXXA FALL PAIN. TECHNIQUE: 2D digital imaging was performed. Three views. COMPARISON: No exams were available for comparison FINDINGS: BONES: No acute fracture is present. No bony destructive lesion is seen. JOINTS: The carpal bones are normally aligned. SOFT TISSUE: Normal. IMPRESSION: Unremarkable radiographs of the left wrist. DATA REPOSITORY: RADIATION DOSE DELIVERED:
== END 2024-11-11 09:55 ==
LOC: DI 09:36
PROVIDERS: PCP Nurse Practitioner Family; Visit Provider Nurse Practitioner Family
DX: W19.XXXA Unspecified fall, initial encounter (principal); M25.532 Pain in left wrist; M25.572 Pain in left ankle and joints of left foot
CPT/HCPCS: 73110; 73610

== ENCOUNTER 2024-11-11 13:40 | Outpatient (CLI) | payer MEDICAID, SELFPAY ==
[2024-11-11 23:01] LABS: PSA, Screening 0.5 ng/mL (<=2.5)
== END 2024-11-11 13:41 | disposition home or self-care (01) ==
LOC: LBO 13:40
PROVIDERS: PCP Nurse Practitioner Family; Visit Provider Nurse Practitioner Family
DX: Z12.5 Encounter for screening for malignant neoplasm of prostate (principal)
CPT/HCPCS: 36415; 84153

== ENCOUNTER 2025-01-06 22:21 | Outpatient (REF) | payer MEDICAID, SELFPAY ==
[2025-01-08 14:42] LABS: HSV 1 DNA Result Negative (Negative); HSV 2 DNA Result Negative (Negative); Varicella Zoster DNA Result Negative (Negative)
== END 2025-01-06 22:22 | disposition home or self-care (01) ==
LOC: LBN 22:21
PROVIDERS: PCP Nurse Practitioner Family; Visit Provider Nurse Practitioner Family
DX: L28.2 Other prurigo (principal)
CPT/HCPCS: 87529; 87798